=== PATIENT | female | born 1940 | race Caucasian/White ===

== ENCOUNTER 2025-02-09 16:12 | Emergency (ER) | payer MEDICARE, SELFPAY ==
--- NOTE | ~2025-02-09 | XR_ITS ---
EXAMINATION: XR chest 2V Exam Date/Time: 02/09/2025 17:36 CDT HISTORY: weakness Comparison: None. RESULT: Lines, tubes, and devices: None. Lungs and pleura: Emphysematous change. Biapical pleural scarring. Scattered calcified granulomas. Cardiomediastinal silhouette: Unremarkable. Other: No acute osseous or upper abdominal finding. IMPRESSION: No acute cardiopulmonary process. Reviewed, dictated and finalized at location K.
[2025-02-09 16:15] VITALS: BP 148/67; PULSE 67; RESP 16; TEMP 36.4; O2SAT 99
--- NOTE | 2025-02-09 16:21 | ECG_ITS ---
Test Date: 2025-02-09 16:53:29 Measurements Intervals [place] Rate: 66 P: 67 VA: 138 QRS: 57 QRSD: 135 T: 15 QT: 421 QTc: 442 Interpretive Statements SINUS RHYTHM RIGHT BUNDLE BRANCH BLOCK [120+ ms QRS DURATION, UPRIGHT V1, 40+ ms S IN I/aVL/V4/V5/V6] No previous ECG available for comparison Electronically Signed On 02-10-2025 22:32:07 CDT by Daniel Romero M.D.
[2025-02-09 16:54] LABS: Hematocrit 37.0 % (37.0-47.0); Hemoglobin 12.4 g/dL (12.0-15.0); Immature Granulocyte Percent A 0.3 % (0-0.5); Lymphocytes Absolute Auto 2.25 K/mm3 (0.9-3.2); Mean Corpuscular HGB Conc 33.5 g/dl (32-36); Mean Corpuscular Hemoglobin 30.4 pg (26-34); Mean Corpuscular Volume 90.7 fl (80-100); Nucleated Red Blood Cells Absolute Auto 0.000 K/mm3 (0.0-0.012); Nucleated Red Blood Cells Perc 0.0 % (0.0-0.2); Platelet Count Result 257 k/mm3 (150-375); Red Blood Count 4.08 M/mm3 (4.2-5.4); White Blood Count 8.7 K/mm3 (4.5-10.0)
[2025-02-09 17:05] LABS: Alanine Aminotransferase 24 U/L (6-35); Albumin Level 4.2 g/dL (3.5-5.1); Alkaline Phosphatase 82 U/L (38-126); Anion Gap 8 mmol/L (4-12); Aspartate Amino Transferase 35 U/L (14-36); Bilirubin,Total 0.2 mg/dL (0.2-1.3); Blood Urea Nitrogen 11 mg/dL (7-17); Calcium 9.6 mg/dL (8.4-10.2); Carbon Dioxide 24 mmol/L (22-30); Chloride 101 mmol/L (98-107); Estimated CRCL calculation 54 ml/min; Estimated Glomerular Filt Rate > 60; Glucose 91 mg/dL (65-110); Potassium 4.1 mmol/L (3.4-5.0); Sodium 133 mmol/L (137-145); Total Protein 6.9 g/dL (6.3-8.2)
[2025-02-09 17:54] LABS: Creatine Kinase 71 U/L (30-135)
[2025-02-09 18:03] LABS: NT Pro B Type Natriuretic Pept 141 pg/mL (19.9-100); Troponin I < 0.012 ng/mL (0.000-0.034)
[2025-02-09 18:11] LABS: Add Urine Microscopic? NO; Appearance Urine Clear (Clear); Glucose Urine UA Negative (Negative); Leukocyte Esterase Ur Negative LEU/UL (Negative); Nitrate Urine Negative (Negative); Specific Grav Ur 1.009 (1.001-1.035)
[2025-02-09 18:15] VITALS: BP 113/70; PULSE 66; RESP 18; O2SAT 100
--- NOTE | 2025-02-09 18:22 | ED.GENADULT ---
HPI - General Adult General Chief complaint: Weakness Stated complaint: cough aching Time Seen by Provider: 02/09/25 17:12 History of Present Illness HPI narrative: Patient 84-year-old female who presents emergency department with chief complaint of generalized weakness the patient states she has had a sore throat and reports that she is status he has been getting a little short of breath with exertion. Patient states that she has had no fevers reports that she was treated by her doctor in [facility] with antibiotics and reports that she has this not completely better the patient did report when she was in [place] recently that she felt more short of breath when she was about to Review of Systems Review of Systems: A 10 system review of systems was completed on the patient and is negative except for what is stated in the HPI. Nursing and ancillary documentation was reviewed. Exam Narrative: GENERAL: Well-appearing, well-nourished, and in no acute distress. HEAD: Normocephalic, atraumatic. EYES: PERRLA and EOMI. ENT: Nares clear, no rhinorrhea or epistaxis. Mucous membranes moist. NECK: Supple. CHEST: Clear to auscultation. No respiratory distress. HEART: Regular rate and rhythm. No murmur heard. Normal peripheral pulses. ABDOMEN: Soft, nontender, nondistended, normal active bowel sounds. EXTREMITIES: Normal range of motion. No edema. SKIN: Warm, dry, no rash. NEURO: No focal deficits. Alert and oriented x3. PSYCH: Normal mood and affect. Course Vital Signs Vital signs: Vital Signs Temperature 36.4 C 02/09/25 16:15 Pulse Rate 67 02/09/25 16:15 Respiratory Rate 16 02/09/25 16:15 Blood Pressure 148/67 H 02/09/25 16:15 Pulse Oximetry 99 02/09/25 16:15 Oxygen Delivery Room Air 02/09/25 16:15 Temperature 36.4 C 02/09/25 16:15 Pulse Rate 66 02/09/25 18:15 Respiratory Rate 18 02/09/25 18:15 Blood Pressure 113/70 02/09/25 18:15 Pulse Oximetry 100 02/09/25 18:15 Oxygen Delivery Room Air 02/09/25 16:15 Medical Decision Making [facility] Narrative Medical decision making narrative: Differential diagnosis includes COVID, strep, flu, RSV, upper respiratory infection , CHF, EKG showed no acute ischemic changes there was a right bundle-branch block present Troponin was negative BNP was 141 CBC showed no acute abnormality Differential Diagnosis Differential Diagnosis: Differential diagnosis includes pharyngitis, strep, COVID flu, RSV, UTI, CHF, ACS EKG showed no acute ischemic changes Chest x-ray showed no focal infiltrate Urinalysis showed no evidence UTI COVID flu and RSV were negative Patient will be discharged home to follow-up primary care Vital Signs Vital Signs: Vital Signs Temperature 36.4 C 02/09/25 16:15 Pulse Rate 67 02/09/25 16:15 Respiratory Rate 16 02/09/25 16:15 Blood Pressure 148/67 H 02/09/25 16:15 Pulse Oximetry 99 02/09/25 16:15 Oxygen Delivery Room Air 02/09/25 16:15 Temperature 36.4 C 02/09/25 16:15 Pulse Rate 66 02/09/25 18:15 Respiratory Rate 18 02/09/25 18:15 Blood Pressure 113/70 02/09/25 18:15 Pulse Oximetry 100 02/09/25 18:15 Oxygen Delivery Room Air 02/09/25 16:15 Lab Data 02/09/25 16:43 02/09/25 16:43 Labs: Lab Results 02/09/25 02/09/25 02/09/25 Range/Units 16:41 16:43 18:03 WBC 8.7 (4.5-10.0) K/mm3 RBC 4.08 L (4.2-5.4) M/mm3 Hgb 12.4 (12.0-15.0) g/dL Hct 37.0 (37.0-47.0) % MCV 90.7 (80-100) fl MCH 30.4 (26-34) pg MCHC 33.5 (32-36) g/dl RDW 13.5 (11.5-14.5) % Plt Count 257 (150-375) k/mm3 MPV 9.7 (7.4-10.4) fl Immature Gran % (Auto) 0.3 (0-0.5) % Neut % (Auto) 66.4 (45.5-73.1) % Lymph % (Auto) 25.9 (18.3-44.2) % [place] % (Auto) 5.9 (2.6-8.5) % Eos % (Auto) 0.9 (0-4.4) % Baso % (Auto) 0.6 (0.2-1.2) % Lymph # (Auto) 2.25 (0.9-3.2) K/mm3 [place] # (Auto) 0.5 (0.1-0.6) K/mm3 Eos # (Auto) 0.1 (0-0.3) K/mm3 Baso # (Auto) 0.1 (0.0-0.1) K/mm3 Abs Immat Gran (auto) 0.03 (0.00-0.031) K/mm3 Absolute Neuts (auto) 5.8 (1.3-6.7) K/mm3 Absolute Nucleated RBC 0.000 (0.0-0.012) K/mm3 Nucleated RBC % 0.0 (0.0-0.2) % Sodium 133 L (137-145) mmol/L Potassium 4.1 (3.4-5.0) mmol/L Chloride 101 (98-107) mmol/L Carbon Dioxide 24 (22-30) mmol/L Anion Gap 8 (4-12) mmol/L BUN 11 (7-17) mg/dL Creatinine 0.53 L (0.7-1.0) mg/dL Estim Creat Clear Calc 54 ml/min Estimated GFR > 60 (59 - ) Glucose 91 (65-110) mg/dL Calcium 9.6 (8.4-10.2) mg/dL Total Bilirubin 0.2 (0.2-1.3) mg/dL AST 35 (14-36) U/L ALT 24 (6-35) U/L Alkaline Phosphatase 82 (38-126) U/L Total Creatine Kinase 71 (30-135) U/L Troponin I < 0.012 (0.000-0.034) ng/mL NT-Pro-B Natriuret Pep 141 H (19.9-100) pg/mL Total Protein 6.9 (6.3-8.2) g/dL Albumin 4.2 (3.5-5.1) g/dL Urine Color Yellow (Yellow) Urine Appearance Clear (Clear) Urine pH 5.5 (5.0-9.0) Ur Specific [place] 1.009 (1.001-1.035) Urine Protein Negative (Negative) mg/dL Urine Glucose (UA) Negative (Negative) mg/dL Urine Ketones Trace H (Negative) mg/dL Ur Blood (Man) Negative (Negative) Urine Nitrate Negative (Negative) Urine Bilirubin Negative (Negative) Urine Urobilinogen 0.2 (<2.0) mg/dL Leukocyte Esterase Rfl Negative (Negative) CORA/UL Influenza A (RT-PCR) Negative (Negative) Influenza B (RT-PCR) Negative (Negative) RSV (RT-PCR) Negative (Negative) SARS-CoV-2 RNA (RT-PCR) Negative (Negative) Group A Strep (PCR) Not detected (Negative) Discharge Plan Discharge Clinical Impression: Weakness, Viral illness Patient Disposition: Home Condition: Stable Instructions: Antibiotic Form, Viral Syndrome (ED), Weakness (ED) Patient Language: Kazakh Follow-up/Referrals: PHYSICIAN NOT ON STAFF,NONSTAFF [Primary Care Provider] - Time of Disposition: 19:25
[2025-02-09 18:35] LABS: Strep Group A RT-PCR NOT DETECTED (Negative)
[2025-02-09 18:46] LABS: Influenza A QL RT-PCR Negative (Negative); Influenza B QL RT-PCR Negative (Negative); RSV RNA, RT-PCR Negative (Negative); SARS-CoV-2 RNA PCR Negative (Negative)
--- NOTE | 2025-02-09 19:22 | PC.NURSE ---
Report received from LUCIANO Thompson. Assumed care of patient at this time.
[2025-02-09 19:25] VITALS: BP 147/79; PULSE 70; RESP 18; O2SAT 100
== END 2025-02-09 19:39 | disposition home or self-care (01) ==
PROVIDERS: Emergency Medicine; Emergency Provider Emergency Medicine
DX: R53.1 Weakness (principal); B34.9 Viral infection, unspecified; Z20.822 Contact with and (suspected) exposure to COVID-19
CPT/HCPCS: 36415; 71046; 80053; 81003; 82550; 83880; 84484; 85025; 87637; 87651; 93005; 99284